=== PATIENT | male | born 1980 | race Caucasian/White ===

== ENCOUNTER 2017-05-13 14:56 | Emergency (ER) | payer OTHER ==
[~2017-05-13] VITALS: Ht 175.3 cm; Wt 90.9 kg
[2017-05-13 15:01] VITALS: BP 101/68; TEMP 98.3
[2017-05-13] MEDS ORDERED: NORCO 325 MG-51 TAB PO (15:42)
[2017-05-13 15:57] VITALS: PULSE 78
== END 2017-05-13 15:59 | disposition home or self-care (01) ==
LOC: COL.ER 14:56
DX: S42.002A Fracture of unspecified part of left clavicle, initial encounter for closed fracture (principal); S70.02XA Contusion of left hip, initial encounter; V18.0XXA Pedal cycle driver injured in noncollision transport accident in nontraffic accident, initial encounter; Y92.830 Public park as the place of occurrence of the external cause; Y93.55 Activity, bike riding